=== PATIENT | male | born 1995 | race Caucasian/White ===

== ENCOUNTER 2019-08-23 06:50 | Emergency (ER) | payer OTHER ==
[~2019-08-23] VITALS: Ht 172.7 cm; Wt 122.5 kg
[2019-08-23 09:03] VITALS: BP 119/78
== END 2019-08-23 09:03 | disposition home or self-care (01) ==
LOC: ER 06:50
DX: R50.9 Fever, unspecified (principal); R11.2 Nausea with vomiting, unspecified; R05 Cough; Z03.818 Encounter for observation for suspected exposure to other biological agents ruled out; Z88.1 Allergy status to other antibiotic agents